=== PATIENT | male | born 1960 | race Two or more races ===

== ENCOUNTER 2025-04-28 12:24 | Outpatient (AMB) | payer MEDICARE, SELFPAY ==
--- NOTE | 2025-04-28 12:58 | A.OFFVIS_ITS ---
Intake Visit Reasons: elevated PSA Intake Note: patient presents today for: new pt elevated PSA urology medications: tamsulosin blood thinners: none labs done: PSA 0.8, f-PSA 25 smoker: no Director Data Processing Required: No Accompanied by: Self / Same As Patient Allergies No Known Allergies Allergy (Verified 04/28/25 13:27) Medication List - Last Reconciled 04/28/25 by JANIE Nunez-ILEANA atorvastatin 40 mg PO DAILY lisinopril 20 mg PO DAILY HPI Comments Details: Kaushik is a pleasant 64-year-old male patient. He has a past medical history of hyperlipidemia and hypertension. He presents to the office today for an elevated PSA. In discussion with the patient today reports having followed up with his PCP and having had blood work at which time recommendations were made for urology referral for further assessment evaluation. In review of patient's chart it appears PSA 02/20 0.8% free PSA 25%. We did discuss difference in PSA verses% free PSA. He denies any family history of prostate cancer. BONG was offered however deferred. He does report noting episodes of urinary frequency and nocturia however describes these episodes as somewhat infrequent and feels they are manageable independently. He otherwise denies incontinence, hematuria, dysuria, foul smelling urine, changes to urinary stream, flank pain, fever, and or chills. He is happy with his current voiding parameters. He also reports noting at times be having urinary hesitancy. In office urinalysis results reviewed with the patient today. We discussed potential causes of elevated% free as well as further treatment options and risks and benefits of these treatment options. All questions were answered. He otherwise offers no other issues or concerns at this time. Review of Systems Const All systems reviewed & are unremarkable except as noted in HPI and below Physical Exam Const General: cooperative, healthy appearing, comfortable, no acute distress, well developed, alert and awake Orientation/consciousness: patient oriented x3 Limitations: no limitations HEENT Head: Yes normal to inspection, Yes normocephalic and Yes atraumatic Ears: hearing grossly normal bilaterally Eyes General: appearance normal, both eyes and all related structures Neck Neck: Yes normal visual inspection and Yes trachea midline Chest Chest palpation & inspection: normal inspection of the chest Resp Effort & Inspection: normal respiratory effort and able to speak in complete sentences Cardio Rate: regular rate GI Inspection: Yes normal to inspection General: Yes no CVA tenderness Back/Spine/Pelvis Back: no CVA tenderness Skin General skin exam: no rashes or lesions noted Neuro General: patient oriented x3 Extrem General: Yes normal to inspection Psych Appearance: grossly normal and well kempt Mental Status: mental status grossly normal Speech and movement: Normal speech and movement present and Clear speech present Affect: normal affect Attitude: cooperative Thought process: Normal thought process present Thought content: Normal thought content present Insight: Fair insight present (Psych) Judgement: Fair judgement present (Psych) Results AMB Urinalysis, Automated UA Leukoctes 0 Ana/uL Last Edit by KONG Abraham on 04/28/25 13:09 UA Nitrite Last Edit by KONG Abraham on 04/28/25 13:09 UA Urobilinogen 0.2 mg/dL Last Edit by KONG Abraham on 04/28/25 13:0 9 UA Protein 15 mg/dL Last Edit by KONG Abraham on 04/28/25 13:09 UA pH 6.0 Last Edit by KONG Abraham on 04/28/25 13:09 UA Blood 0 Francesco/uL Last Edit by KONG Abraham on 04/28/25 13:09 UA Specific Vidor 1.020 Last Edit by KONG Abraham on 04/28/25 13: 09 UA Ketone Last Edit by KONG Abraham on 04/28/25 13:09 UA Bilirubin 0 mg/dL Last Edit by KONG Abraham on 04/28/25 13:09 UA Glucose 0 mg/dL Last Edit by KONG Abraham on 04/28/25 13:09 Results Reviewed Results Reviewed: Laboratory Last Values Urine pH (Auto) 6.0 04/28/25 13:09 Specific Vidor (Auto) 1.020 04/28/25 13:09 Urine Protein (Auto) 15 mg/dL 04/28/25 13:09 Glucose (UA)(Auto) 0 mg/dL 04/28/25 13:09 Urine Blood (Auto) 0 Francesco/uL 04/28/25 13:09 Urine Bilirubin (Auto) 0 mg/dL 04/28/25 13:09 Urine Urobilinogen (Auto) 0.2 mg/dL 04/28/25 13:09 Leukocyte Esterase (Auto) 0 Ana/uL 04/28/25 13:09 Assessment & Plan Assessment & Plan (1) History of elevated PSA: Code(s): Z87.898 - Personal history of other specified conditions Category: Medical (2) History of urinary hesitancy: Code(s): Z87.898 - Personal history of other specified conditions Category: Medical (3) Nocturia: Code(s): R35.1 - Nocturia Category: Medical (4) Urinary frequency: Code(s): R35.0 - Frequency of micturition Category: Medical Plan In office urinalysis results reviewed with the patient today; as noted above. Previous labs were reviewed with the patient today; as noted above. All questions were answered. He reports be happy with current voiding parameters. We discussed further workup in risks and benefits of these interventions. Will obtain retroperitoneal ultrasound for further assessment evaluation. Will obtain redraw of PSA. BONG offered however deferred. Follow-up in 1-3 months with imaging and labs; or sooner with any issues, concerns, and or questions. Orders: Orders US retroperitoneal comp Today R35.0 - Frequency of micturition, R35.1 - Nocturia, Z87.898 - Personal history of other specified conditions PSA,Total (Free>4and<10) Today R35.0 - Frequency of micturition, R35.1 - Nocturia, Z87.898 - Personal history of other specified conditions AMB Urinalysis Automated Today Z13.9 - Encounter for screening, unspecified Patient Instructions: The patient had an opportunity to ask questions regarding the treatment plan. All questions were answered. Physical exam, labs, and imaging were discussed and reviewed in detail. As well as risks, benefits, and discussion of treatment choices. No major barriers to understanding were identified. The patient expressed understanding and agreement with the above treatment plan. The patient was made aware they should contact our office by phone for worsening of their current condition, the appearance of new symptoms, or with any questions or concerns. Compliance is encouraged with any medications and follow up testing that is ordered. It is a privilege to be allowed the opportunity to participate in? your urological care.? Again, if you have any questions or concerns If you have any questions or concerns please do not hesitate to contact me. The office is [phone]. This note is constructed using voice recognition software. While every effort has been made to ensure accuracy supervisor partial denture department errors may have been included. Yours sincerely, JANIE Nunez-ILEANA Coding Level of Care Code New Pt Level 3 (09528) Diagnoses History of elevated PSA Z87.898 History of urinary hesitancy Z87.898 Nocturia R35.1 Urinary frequency R35.0
--- OUTSIDE RECORDS SUMMARY | 2025-04-28 13:37 | XMS_ITS | Clinical Summary ---
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 Name Role Phone Unavailable Primary Care Provider Unavailabl e Social History Tobacco Use Types Packs/Day Years Used Date Smoking Tobacco: Never Assessed Sex and Gender Information Value Date Recorded Sex Assigned at Not on file Legal Sex Male 9:04 AM EST Gender Identity Not on file Sexual Orientation Not on file Plan of Treatment Health Maintenance Due Date Last Done Comments DTaP,Tdap,and Td Vaccines (1 - Tdap) 1981 Pneumococcal Vaccine: 50+ Ye ars (1 of 1 - PCV) 2012 Zoster Vaccines (1 of 2) 2012 Depression Screening 07/30/2024 COVID-19 Vaccine (1 - 2023-2 5 season) 2025 Influenza Vaccine (#1) 2025 RSV Immunization Adult Patie nts (1 - 1-dose 75+ series) 2037 HIB Vaccines Aged Out No longer eligi ble based on patient's age to complete this topic HPV Vaccines Aged Out No longer eligi ble based on patient's age to complete this topic Hepatitis A Vaccines Aged Out No long er eligible based on patient's age to complete this topic Hepatitis B Vaccines Aged Out No long er eligible based on patient's age to complete this topic IPV Vaccines Aged Out No longer eligi ble based on patient's age to complete this topic MMR Vaccines Aged Out No longer eligi ble based on patient's age to complete this topic Meningococcal ACWY Vaccine Aged Out N o longer eligible based on patient's age to complete this topic Meningococcal B Vaccine Aged Out No l onger eligible based on patient's age to complete this topic RSV Immunization Patients Un colton 20 months Aged Out No longer eligible b ased on patient's age to complete this topic Varicella Vaccines Aged Out No longer eligible based on patient's age to complete this topic
--- OUTSIDE RECORDS SUMMARY | 2025-04-28 13:37 | XMS_ITS | Clinical Summary ---
Author Organization [facility] Address [address] [place] [address] Care Team Providers Care Hand Router Operator Name Role Phone Leatha Osman [facility] Primary Care Provider [phone] Source Comments PLEASE NOTE, if this patient is a minor, it may be UNLAWFUL to discuss sensitive information that is contained in these records (such as FAMILY PLANNING, MENTAL HEALTH or SUBSTANCE ABUSE) with the minor patient's parent or other person without the patient's specific authorization.[facility] Allergies No known active allergies Medications DULoxetine (CYMBALTA) [address] capsuleIndications :Anxiety and depression PRESCRIBED BY BOY CORREA CONSTANC E 0 11/29/19 22 Active ARIPiprazole (ABILIFY) 5 mg tabletIndications: Anxiety and depression [facility] ERIC BALES 11/29/19 22 Active ibuprofen 800 mg tabletIndications: Lymphadenopathy of right cervical region TAKE 1 TABLET BY MOUTH THREE TIMES A DAY NEEDED FOR PAIN 90 Tablet 1 03/06/20 22 Active meclizine (ANTIVERT) 25 mg tabletIndications: Vertigo TAKE 1 TABLET BY MOUTH 3 TIMES A DAY FOR 21 DAYS NEEDED FOR DIZZINESS 90 Tablet 12/02/19 23 Active ketoconazole (NIZORAL) 2 % shampooIndications :Seborrheic dermatitis APPLY TOPICALLY ONCE DAILY NEEDED FOR ITCHING 120 mL 4 09/29/19 25 Active lisinopriL 20 mg tabletIndications: Other secondary hypertension TAKE 1 TABLET BY MOUTH EVERY DAY 90 Tablet 1 11/07/19 25 Active tamsulosin (FLOMAX) 0.4 mg 24 hr capsuleIndications :Urinary dysfunction TAKE 1 CAPSULE BY MOUTH EVERY DAY IN THE EVENING 90 Capsule 1 11/07/19 25 Active atorvastatin (LIPITOR) 40 mg tabletIndications: Mixed hyperlipidemia TAKE 1 TABLET BY MOUTH ONCE DAILY FOR HIGH CHOLESTEROL AND HIGH TRIGLYCERIDES 90 Tablet 1 11/21/19 25 Active Active Problems Problem Noted Date Diagnosed Date Mixed hyperlipidemia 11/20/2023 Food insecurity 05/14/2023 Housing instability 05/14/2023 History of sexual dysfunction in male 10/25/2020 Localized osteoarthritis of lumbar spine 020 Overview (03/10/2020): Lumbar Spine 2 or 3 Views 03/08/2020 [facility] FINDINGS: There are 4 nonrib-bearing lumbar type vertebral bodies, which will be referred to as L1-L4. Vertebral body height, curvature, and alignment are normal. There is no significant disc space narrowing. Small multilevel anterior osteophytes are seen. Spinous processes and transverse processes are intact. SI joints are grossly unremarkable. There is no soft tissue abnormality. IMPRESSION: No acute abnormality. Hearing loss of left ear 03/04/2019 Tubular adenoma 03/04/2019 History of tobacco use 06/15/2018 Overview (05/15/2023): Stopped since 2004 Smoked 1.5 ppd for 30 years LDCT: pending HTN (hypertension) 05/30/2013 Major depressive disorder with current active ep isode 05/30/2013 Overview (05/14/2023): Was seeing Sunny Encounters Date Type Department Care Team Description 02/22/2025 Results Follow-Up [address] [address] Leatha Osman FNP 02/13/2025 10:00 AM EDT Office Visit [address] [address] Leatha Osman FNP from Last 3 Months Immunizations Immunization Administration Dates Next Due HEP A-HEP B (TWINRIX) 10/28/2020 Hep B,adult,adjuvanted (HEPLISAV) 02/13/2025 PNEUMOCOCCAL CONJUGATE PCV 20 (Prevnar 20) 02/13 TDAP 10/22/2020,02/07/2016,11/20/2011 ZOSTER VACCINE, RECOMBINANT (SHINGRIX) ,02/21/2023 Family History Medical History Relation Name Comments Diabetes Brother hiv+ Diabetes Mother Relation Name Status Comments Brother Father Alive Mother Social History Tobacco Use Types Packs/Day Years Used Date Smoking Tobacco: Former Cigarettes 1.5 31 1 977 - 2007 Smokeless Tobacco: Never Alcohol Use Standard Drinks/Week Comments No 0 (1 standard drink = 0.6 oz pur e alcohol) Social Connections Answer Date Recorded Connectedness 0 05/14/2023 Financial Resource Strain Answer Date R ecorded Financial Resource Strain 0 2022 Stress Answer Date Recorded Stress 0 05/14/2023 Physical Activity Answer Date Recorded Physical Activity 0 04/30/2020 Food Insecurity Answer Date Recorded Food 0 05/14/2023 Transportation Needs Answer Date Record ed Transportation 0 05/14/2023 Housing Stability Answer Date Recorded Housing 0 05/14/2023 Safety and Environment Answer Date Balbir rded Safety 0 05/14/2023 Utilities Answer Date Recorded Utilities 0 05/14/2023 Employment Answer Date Recorded Stress 0 04/30/2020 Sex and Gender Information Value Date Recorded Sex Assigned at Male 06/15/2018 6:50 PM PST Legal Sex Male 10:46 AM PDT Gender Identity Male 06/15/2018 6:50 PM PST Sexual Orientation Straight 06/15/2018 6: 50 PM PST Last Filed Vital Signs Vital Sign Reading Time Taken Comments Blood Pressure 150/90 02/13/2025 10:08 AM EDT Pulse 56 02/13/2025 10:08 AM EDT Temperature 36.7 C (98 F) 02/13/2025 10:08 AM EDT Respiratory Rate 16 02/13/2025 10:08 AM EDT Oxygen Saturation 98% 02/13/2025 10:08 AM EDT Inhaled Oxygen Concentration - - Weight 75.3 kg (166 lb 1.6 oz) 02/13/2025 10:08 AM EDT Height 172.7 cm (5' 8 ) 02/13/2025 10:08 AM EDT Body Mass Index 25.26 02/13/2025 10:08 AM EDT Plan of Treatment Health Maintenance Due Date Last Done Comments Medicare Annual Wellness Visit 1980 CT Colonography 2007 Fecal DNA 2007 Flexible Sigmoidoscopy 2007 FIT/gFOBT 07/22/2015 07/22/2014 (Declined) Colonoscopy 08/14/2023 08/14/2018 Colorectal Cancer Screening 08/14/2023 [id number] ( season) 2025 Imm-Influenza (#1) 2025 07/22/2014 (D eclined), 05/30/2013 (Declined) Imm-Hepatitis B (3 of 3 - 19 + 3-dose series) 04/10/2025 02/13/2025, 10/28/2020 Depression Monitoring 05/16/2025 02/13/2025 , 05/14/2023, 12/01/2022, Additional history exists Anxiety Screening 02/13/2026 02/13/2025 Diabetes Screening 02/13/2026 02/13/2025, 0 02/13/2025, 11/19/2023, Additional history exists Lipid Screening 02/13/2026 02/13/2025, 10/29, 05/14/2023, Additional history exists Tobacco Screening 02/13/2026 02/13/2025 Imm-DTaP/Tdap/Td (4 - Td or Tdap) 10/22/2030 10/22/2020, 02/07/2016, 11/20/2011 Hepatitis C Screening Completed 10/26/2020 Imm-Zoster, Recombinant Completed 05/14/2023, 02/21 Alcohol and Drug Screen Completed 02/14/20, 11/19/2023, 12/01/2022, Additional history exists HIV Screening Completed 02/13/2025, 10/29, 10/26/2020, Additional history exists Imm-Pneumococcal 50+ Completed 02/13/2025 Procedures Procedure Name Priority Date/Time Associated Diagnosis Comments RFLX - REFLEXIVE URINE CULTURE Routine 02/13/2025 10:58 AM EDT URINALYSIS, COMPLETE W/REFLEX TO CULTURE Routine 02/13/2025 10:58 AM EDT Routine general medical examination at a health care facility HIV 1/2 AG & AB W/RFLX (4TH GEN) Routine 02/13/2025 10:58 AM EDT Routine general medical examination at a health care facility PROSTATE SPECIFIC ANTIGEN, FREE AND TOTAL Routine 02/13/2025 10:58 AM EDT Routine general medical examination at a [facility] care facility BLOOD COUNT COMPLETE AUTO&AUTO DIFRNTL WBC Routine 02/13/2025 10:58 AM EDT Routine general medical examination at a [facility] care facility COMPREHENSIVE METABOLIC PANEL Routine 02/13/2025 10:58 AM EDT Routine general medical examination at a [facility] facility TSH W/RFLX FREE T4 Routine 02/13/2025 10 :58 AM EDT Routine general medical examination at formerly [facility] facility HEMOGLOBIN GLYCOSYLATED A1C Routine 02/13/2025 10:58 AM EDT Routine general medical examination at a [facility] facility LIPID PANEL Routine 02/13/2025 10:58 AM EDT Routine general medical examination at formerly [facility] facility ACUTE HEPATITIS PANEL W/RFLX Routine 10/26/2020 9:57 AM EDT COLONOSCOPY Routine 08/14/2018 from Last 3 Months or Most Recently Relevant to Health Maintenance Results * HIV 1/2 AG & AB W/RFLX (4TH GEN) Routine (02/13/2025 10:58 AM EDT) HIV Screen Final See Note [facility] Comment: HIV Negative HIV-1 antigen and HIV-1/HIV-2 antibodies were not detected. There is no laboratory evidence of HIV infection. HIV AG/AB, 4TH GEN NON-REACT RAYA NON-REACT RAYA [facility] Blood Blood / Unknown 02/13/2025 1 0:58 AM EDT 02/13/2025 10:59 AM EDT Narrative [facility] - 02/18/2025 5:22 AM EDT FASTING:NO Leatha Osman CHANGE COORDINATOR LAB - BLOOD DRAW Final Resul t Performing Organization Address City/[facility]/ZIP Co de Phone Number [facility] [address] [address], [facility] [address] [address] * TSH W/RFLX FREE T4 Routine (02/13/2025 10:58 AM EDT) TSH W/REFLEX TO FT4 1.46 0.40 - 4.50 mIU/L [facility] Blood Blood / Unknown 02/13/2025 1 0:58 AM EDT 02/13/2025 10:59 AM EDT Narrative [facility] - 02/18/2025 5:22 AM EDT FASTING:NO Leatha Osman CHANGE COORDINATOR LAB - BLOOD DRAW Edited Resu lt - Final Performing Organization Address [facility]/RUST de Phone Number [facility] [address] [address], [facility] [address] [address] * URINALYSIS, COMPLETE W/REFLEX TO CULTURE Urine Routine (02/13/2025 10:58 AM EDT) COLOR YELLOW YELLOW [facility] APPEARANCE CLEAR CLEAR [facility] SPECIFIC GRAVITY 1.028 1.001 - 1.035 [facility] URINE PH 5.5 5.0 - 8.0 [facility] GLUCOSE NEGATIVE NEGATIVE [facility] BILIRUBIN NEGATIVE NEGATIVE [facility] KETONES NEGATIVE NEGATIVE [facility] OCCULT BLOOD NEGATIVE NEGATIVE [facility] URINE PROTEIN NEGATIVE NEGATIVE [facility] NITRITE NEGATIVE NEGATIVE [facility] LEUKOCYTE ESTERASE NEGATIVE NEGATIVE [facility] URINE LEUKOCYTES NONE SEEN < OR = 5 [facility] RBC 0-2 0 - 2 /HPF [facility] SQUAMOUS EPITHELIAL CELLS NONE SEEN < OR = 5 [facility] BACTERIA NONE SEEN NONE SEEN [facility] HYALINE CAST NONE SEEN NONE SEEN [facility] SEE NOTE See Below [facility] Comment: This urine was analyzed for the presence of WBC, RBC, bacteria, casts, and other formed elements. Only those elements seen were reported. Urine Urine specimen / Unknown 02/13/2025 10:58 AM EDT 02/13/2025 10:59 AM EDT Narrative [facility] - 02/18/2025 5:22 AM EDT FASTING:NO Leatha DavenportDawson [facility] URINE AMBULATORY Edited Result - Final Performing Organization Address [facility]/ZIP Co de Phone Number [facility] [address] [address], [facility] [address] [address] * RFLX - REFLEXIVE URINE CULTURE Routine (02/13/2025 10:58 AM EDT) REFLEXIVE URINE CULTURE See Below [employer] [facility] Comment:NO CULTURE INDICATED 02/13/2025 10:5 8 AM EDT 02/13/2025 10:59 AM EDT Narrative [facility] - 02/18/2025 5:22 AM EDT FASTING:NO Leathakam Osman [facility] - MICROBIOLOGY AMBULATOR Y Edited Result - Final Performing Organization Address [facility] Co de Phone Number [facility] [address] [address], [facility] [address] [address] * (ABNORMAL) PROSTATE SPECIFIC ANTIGEN, FREE AND TOTAL Routine (02/13/2025 10:58 AM EDT) TOTAL PSA 0.8 < OR = 4.0 ng/mL [facility] FREE PSA 0.2 ng/mL [facility] % FREE PSA 25(L) >25 % (calc) [facility] Comment: PSA(ng/mL) Free PSA(%) Estimated(x) Probability of Cancer(as%) 0-2.5 (*) Approx. 1 2.6-4.0(1) 0-27(2) 24(3) 4.1-10(4) 0-10 56 11-15 28 16-20 20 21-25 16 >or =26 8 >10(+) N/A >50 References:(1)Coleen et al.:Urology 60: 469-474 (2002) (2)Coleen et al.:J.Urol 168: 922-925 (2001) Free PSA(%) Sensitivity(%) Specificity(%) < or = 25 85 19 < or = 30 93 9 (3)Palomaona et al.:KATHERINE 277: [phone] (1996) (4)Catalona et al.:KATHERINE 279: 5231-0905 (1997) (x)These estimates vary with age, ethnicity, family history and BONG results. (*)The diagnostic usefulness of % Free PSA has not been established in patients with total PSA below 2.6 ng/mL (+)In men with PSA above 10 ng/mL, prostate cancer risk is determined by total PSA alone. The Total PSA value from this assay system is standardized against the equimolar PSA standard. The test result will be approximately 20% higher when compared to the WHO-standardized Total PSA (Siemens assay). Comparison of serial PSA results should be interpreted with this fact in mind. PSA was performed using the Oksana Erin Immunoassay method. Values obtained from different assay methods cannot be used interchangeably. PSA levels, regardless of value, should not be interpreted as absolute evidence of the presence or absence of disease. Blood Blood / Unknown 02/13/2025 1 0:58 AM EDT 02/13/2025 10:59 AM EDT Narrative [facility] - 02/18/2025 5:22 AM EDT FASTING:NO Leatha Osman [facility] - BLOOD DRAW Final Resul t [facility] [address] [place] [address], [facility] [address] [place] [phone] * (ABNORMAL) BLOOD COUNT COMPLETE AUTO&AUTO DIFRNTL WBC Routine (02/13/2025 10:58 AM EDT) WHITE BLOOD CELL COUNT 7.6 3.8 - 10.8 Thousand/ uL [facility] RED BLOOD CELL COUNT 4.03(L) 4.20 - 5.80 Million/u L [facility] HEMOGLOBIN 13.0(L) 13.2 - 17.1 g/dL [facility] HEMATOCRIT 39.1 38.5 - 50.0 % [facility] MCV 97.0 80.0 - 100.0 fL [facility] MCH 32.3 27.0 - 33.0 pg [facility] MCHC 33.2 32.0 - 36.0 g/dL [facility] Comment: For adults, a slight decrease in the calculated MCHC value (in the range of 30 to 32 g/dL) is most likely not clinically significant; however, it should be interpreted with caution in correlation with other red cell parameters and the patient's clinical condition. RDW 12.2 11.0 - 15.0 % [facility] PLATELET COUNT 212 140 - 400 Thousand/ uL [facility] MPV 11.1 7.5 - 12.5 fL [facility] ABSOLUTE NEUTROPHILS 5,548 1,500 - 7,800 cells/uL [facility] ABSOLUTE LYMPHOCYTES 1,490 850 - 3,900 cells/uL [facility] ABSOLUTE MONOCYTES 479 200 - 950 cells/uL [facility] ABSOLUTE EOSINOPHILS 30 15 - 500 cells/uL [facility] ABSOLUTE BASOPHILS 53 0 - 200 cells/uL [facility] NEUTROPHILS PCT 73 % [facility] LYMPHOCYTES 19.6 % [facility] MONOCYTES 6.3 % [facility] EOSINOPHILS 0.4 % [facility] BASOPHILS 0.7 % [facility] Blood Blood / Unknown 02/13/2025 1 0:58 AM EDT 02/13/2025 10:59 AM EDT Narrative [facility] - 02/18/2025 5:22 AM EDT FASTING:NO Leatha Osman CHANGE COORDINATOR LAB - BLOOD DRAW Edited Resu lt - Final [facility] [address] [address], [facility] [address] [place] [address] * HEMOGLOBIN GLYCOSYLATED A1C Routine (02/13/2025 10:58 AM EDT) HEMOGLOBIN A1C 5.5 <5.7 % [facility] Comment: For the purpose of screening for the presence of diabetes: <5.7% Consistent with the absence of diabetes 5.7-6.4% Consistent with increased risk for diabetes (prediabetes) > or =6.5% Consistent with diabetes This assay result is consistent with a decreased risk of diabetes. Currently, no consensus exists regarding use of hemoglobin A1c for diagnosis of diabetes in children. According to [place] Diabetes Association (ADA) guidelines, hemoglobin A1c <7.0% represents optimal control in non- diabetic patients. Different metrics may apply to specific patient populations. Standards of Medical Care in Diabetes(ADA). Blood Blood / Unknown 02/13/2025 1 0:58 AM EDT 02/13/2025 10:59 AM EDT Narrative [facility] - 02/18/2025 5:22 AM EDT FASTING:NO Leatha Osman CHANGE COORDINATOR LAB - BLOOD DRAW Edited Resu lt - Final fromAtoB [facility] [address] [address], [facility] [address] [address] * LIPID PANEL Routine (02/13/2025 10:58 AM EDT) [facility] CHOLESTEROL, TOTAL 165 <200 mg/dL [facility] HDL CHOLESTEROL 56 > OR = 40 mg/dL [facility] TRIGLYCERIDES 104 <150 mg/dL [facility] LDL-CHOLESTEROL 89 99 mg/dL (calc) [facility] Comment: Reference range: <100 Desirable range <100 mg/dL for primary prevention; <70 mg/dL for patients with CHD or diabetic patients with > or = 2 CHD risk factors. LDL-C is now calculated using the Azam calculation, which is a validated novel method providing better accuracy than the Friedewald equation in the estimation of LDL-C. Carlitos ARANDA et al. KATHERINE. 2013;310(19): 3279-2445 (http://education.Proposify.Cellular Bioengineering/faq/YCG832) CHOL/HDLC RATIO 2.9 <5.0 (calc) [facility] NON-HDL CHOLESTEROL 109 <130 mg/dL (calc) [facility] Comment: For patients with diabetes plus 1 major ASCVD risk factor, treating to a non-HDL-C goal of <100 mg/dL (LDL-C of <70 mg/dL) is considered a therapeutic option. Blood Blood / Unknown 02/13/2025 1 0:58 AM EDT 02/13/2025 10:59 AM EDT Narrative [facility] - 02/18/2025 5:22 AM EDT FASTING:NO Leatha Osman CHANGE COORDINATOR LAB - BLOOD DRAW Final Resul t [facility] [address] [address], [facility] [address] [address] * COMPREHENSIVE METABOLIC PANEL Routine (02/13/2025 10:58 AM EDT) Pathologist [facility] [place] GLUCOSE 87 65 - 139 mg/dL [facility] Comment: Non-fasting reference interval UREA NITROGEN (BUN) 21 7 - 25 mg/dL [facility] CREATININE (blood) 1.03 0.70 - 1.35 mg/dL [facility] EGFR 82 > OR = 60 mL/min/1. 73m2 [facility] BUN/CREATININE RATIO SEE NOTE: [facility] Comment: Not Reported: BUN and Creatinine are within reference range. SODIUM 140 135 - 146 mmol/L [facility] POTASSIUM 4.9 3.5 - 5.3 mmol/L [facility] CHLORIDE 105 98 - 110 mmol/L [facility] CARBON DIOXIDE 27 20 - 32 mmol/L [facility] CALCIUM 9.5 8.6 - 10.3 mg/dL [facility] PROTEIN, TOTAL 6.6 6.1 - 8.1 g/dL [facility] ALBUMIN 4.4 3.6 - 5.1 g/dL [facility] GLOBULIN 2.2 1.9 - 3.7 g/dL (calc) [facility] ALBUMIN/GLOBULI N RATIO 2.0 1.0 - 2.5 (calc) [facility] BILIRUBIN, TOTAL 0.4 0.2 - 1.2 mg/dL [facility] ALKALINE PHOSPHATASE 59 35 - 144 U/L [facility] AST 18 10 - 35 U/L [facility] ALT 18 9 - 46 U/L [facility] Blood Blood / Unknown 02/13/2025 1 0:58 AM EDT 02/13/2025 10:59 AM EDT Narrative [facility] - 02/18/2025 5:22 AM EDT FASTING:NO Leatha Osman CHANGE COORDINATOR LAB - BLOOD DRAW Edited Resu lt - Final [facility] [address] [address], [facility] [address] [address] * COLONOSCOPY (08/14/2018) 08/14/2018 Impressions [facility] - 08/16/2018 9:26 AM EST Diverticulosis of the sigmoid colon. Polyps in the ascending colon.(Polypectomy). External Hemorrhoids us Provider [place] PROCEDURES Final Result Performing Organization Address [facility]/ZIP Co de Phone Number [facility] [address] [place] [address], from Last 3 Months or Most Recently Relevant to Health Maintenance Insurance [employer] [place] Care Teams Hand Router Operator Relationship Specialty Start Date End Date Leatha Osman FNP [facility] [place] [address] PCP - General Family Medicine, RECREATION COUNSELOR 01/27/25
== END 2025-04-28 13:23 | disposition home or self-care (01) ==
LOC: HO.HUSH 12:25
PROVIDERS: Visit Provider Nurse Practitioner Family
DX: Z87.898 Personal history of other specified conditions (principal); R35.1 Nocturia; R35.0 Frequency of micturition; Z13.9 Encounter for screening, unspecified
CPT/HCPCS: 99203

== ENCOUNTER → 2025-04-28 12:24 | Outpatient (BNVA) | payer MEDICARE, SELFPAY | PROVIDERS: Visit Provider Nurse Practitioner Family | DX: R97.20 Elevated prostate specific antigen [PSA] (principal); R35.1 Nocturia; R35.0 Frequency of micturition; Z87.898 Personal history of other specified conditions | CPT/HCPCS: 81003; 99202 ==

== ENCOUNTER 2025-06-18 14:20 | Outpatient (REF) | payer MEDICARE, SELFPAY ==
--- NOTE | ~2025-06-18 | US_ITS ---
EXAMINATION: US RETROPERITONEAL COMPLETE (RENAL) CLINICAL INFORMATION: Frequency, elevated PSA. COMPARISON: None available. TECHNIQUE: Real-time imaging of the kidneys and bladder. FINDINGS: RIGHT KIDNEY: 8.9 x 8.0 x 7.0 cm (SAG x AP x TRV). The kidney is normal in size, contour, and echogenicity. Renal cortical thickness is normal. No calculi or focal parenchymal lesions. No hydronephrosis. LEFT KIDNEY: 10.4 x 5.1 x 4.3 cm (SAG x AP x TRV). The kidney is normal in size, contour, and echogenicity. Renal cortical thickness is normal. No calculi or focal parenchymal lesions. No hydronephrosis. There is mild pelvic fullness present. There is a simple upper pole cyst measuring 1.2 cm. BLADDER: Well distended. Wall appears trabeculated. Bilateral ureteral jets are Demonstrated. Prevoid bladder volume is 180 mL. Postvoid bladder volume is estimated at 106 mL. (59% post void residual). Prostate volume estimated at 30.4 mL. US/US retroperitoneal comp IMPRESSION: 1. Significant postvoid residual of the urinary bladder at 106 mL estimated. 2. Trabeculated urinary bladder wall suggesting chronic outlet obstruction versus neurogenic bladder. 3. Mild fullness of the left renal pelvis without gross hydronephrosis. 4. Prostate enlargement with estimated volume of 30.4 mL. Electronically signed by: Esteban Metz MD 06/18/2025 04:03 PM [facility]
--- OUTSIDE RECORDS SUMMARY | 2025-06-18 19:45 | XMS_ITS | Clinical Summary ---
Author Organization [email or web address] [facility] ity Address [address] [place] [address] Care Team Providers Care Bobcat Driver/Labor Name Role Phone Unavailable Primary Care Provider [...] Depression Screening 07/30/2024 COVID-19 Vaccine (1 - 2024-2 6 season) 2025 Influenza Vaccine (#1) 2025 RSV [...]
== END 2025-06-18 14:21 | disposition home or self-care (01) ==
LOC: HO.US 14:20
PROVIDERS: Visit Provider Nurse Practitioner Family
DX: Z87.898 Personal history of other specified conditions (principal); R35.0 Frequency of micturition; R35.1 Nocturia
CPT/HCPCS: 76770

== ENCOUNTER → 2025-06-18 14:22 | Outpatient (BNV) | payer MEDICARE, SELFPAY | PROVIDERS: Visit Provider Radiology Diagnostic Radiology | DX: N40.0 Benign prostatic hyperplasia without lower urinary tract symptoms (principal) | CPT/HCPCS: 76770 ==

== ENCOUNTER 2025-07-03 07:46 | Outpatient (REF) | payer MEDICARE, SELFPAY ==
[2025-07-03 08:57] LABS: PSA,Total (Free>4and<10) 0.73 ng/mL (0.00-4.00)
== END 2025-07-03 07:47 | disposition home or self-care (01) ==
LOC: HO.LAB 07:46
PROVIDERS: PCP Dentist General Practice; Visit Provider Nurse Practitioner Family
DX: Z12.5 Encounter for screening for malignant neoplasm of prostate (principal); R35.1 Nocturia; R35.0 Frequency of micturition; Z87.898 Personal history of other specified conditions
CPT/HCPCS: 36415; 84153

== ENCOUNTER 2025-07-07 09:08 | Outpatient (AMB) | payer MEDICARE, SELFPAY ==
--- NOTE | 2025-07-07 09:10 | MHC.OFFVIS ---
Intake Visit Reasons: 3m/US/PSA/UA Intake Note: Patient is present for 3M/US/PSA/UA PSA:0.73 IMAGIN06/18/25 Urology Medication:NONE Antibiotic Allergy:NONE Blood Thinner:NONE Home Therapy Clinician Required: Yes Home Therapy Clinician Services: Home Therapy Clinician Present Home Therapy Clinician Name: Brisa Redmond Allergies No Known Allergies Allergy (Verified 07/07/25 09:36) Medication List - Last Reconciled 07/07/25 by JANIE Nunez-ILEANA atorvastatin 40 mg PO DAILY lisinopril 20 mg PO DAILY HPI Comments Details: Kaushik is a pleasant 64-year-old male patient. He has a past medical history of hyperlipidemia and hypertension. He presents to the office today for follow-up. Of note, during last office visit a retroperitoneal ultrasound and PSA were ordered for further assessment evaluation. These results were reviewed and communicated with the patient today. 06/23 bilateral kidneys are normal in size, contour and echogenicity. No hydronephrosis noted bilaterally. There is a simple upper pole cyst in the left kidney measuring 1.2 cm. The bladder is well distended however bladder wall appears trabeculated. Pre void bladder volume 180 mL. Postvoid bladder volume 105 mL. Prostate volume is estimated at approximately 30 mL. PSAs are as follows: PSA: 02/20 0.8 % free PSA 25%, 07/23 0.7 We discussed potential causes of % free PSA being elevated as well as enlarged prostate and bladder trabeculations noted on imaging. We discussed further treatment options and risks and benefits of these treatment options. He denies any known family history of prostate cancer. BONG was offered however deferred. He does report noting episodes of urinary frequency and nocturia however feels he is managing these symptoms well independently. He otherwise denies incontinence, hematuria, dysuria, foul smelling urine, changes to urinary stream, flank pain, fever, and or chills. He is happy with his current voiding parameters. He also reports noting at times be having urinary hesitancy. In office urinalysis results reviewed with the patient today. All questions were answered. He otherwise offers no other issues or concerns at this time. Review of Systems Const All systems reviewed & are unremarkable except as noted in HPI and below Physical Exam Const General: cooperative, healthy appearing, comfortable, no acute distress, well developed, alert and awake Orientation/consciousness: patient oriented x3 Limitations: language barrier HEENT Head: Yes normal to inspection, Yes normocephalic and Yes atraumatic Ears: hearing grossly normal bilaterally Eyes General: appearance normal, both eyes and all related structures Neck Neck: Yes normal visual inspection and Yes trachea midline Chest Chest palpation & inspection: normal inspection of the chest Resp Effort & Inspection: normal respiratory effort and able to speak in complete sentences Cardio Rate: regular rate GI Inspection: Yes normal to inspection General: Yes no CVA tenderness Back/Spine/Pelvis Back: no CVA tenderness Skin General skin exam: no rashes or lesions noted Neuro General: patient oriented x3 Extrem General: Yes normal to inspection Psych Appearance: grossly normal and well kempt Mental Status: mental status grossly normal Speech and movement: Normal speech and movement present and Clear speech present Affect: normal affect Attitude: cooperative Thought process: Normal thought process present Thought content: Normal thought content present Insight: Fair insight present (Psych) Judgement: Fair judgement present (Psych) Results AMB Urinalysis, Automated UA Leukoctes 0 Ana/uL Last Edit by KONG Garcia on 07/07/25 09:25 UA Nitrite Negative Last Edit by KONG Garcia on 07/07/25 09:25 UA Urobilinogen 0.2 mg/dL Last Edit by KONG Garcia on 07/07/25 09:25 UA Protein 0 mg/dL Last Edit by KONG Garcia on 07/07/25 09:25 UA pH 5.5 Last Edit by KONG Garcia on 07/07/25 09:25 UA Blood 0 Francesco/uL Last Edit by KONG Garcia on 07/07/25 09:25 UA Specific [place] 1.005 Last Edit by KONG Garcia on 07/07/25 09:25 UA Ketone Negative Last Edit by KONG Garcia on 07/07/25 09:25 UA Bilirubin 0 mg/dL Last Edit by KONG Garcia on 07/07/25 09:25 UA Glucose 0 mg/dL Last Edit by KONG Garcia on 07/07/25 09:25 Results Reviewed Results Reviewed: Laboratory Last Values Urine pH (Auto) 5.5 07/07/25 09:17 Specific [place] (Auto) 1.005 07/07/25 09:17 Urine Protein (Auto) 0 mg/dL 07/07/25 09:17 Glucose (UA)(Auto) 0 mg/dL 07/07/25 09:17 Urine Ketones (Auto) Negative 07/07/25 09:17 Urine Blood (Auto) 0 Francesco/uL 07/07/25 09:17 Urine Nitrite (Auto) Negative 07/07/25 09:17 Urine Bilirubin (Auto) 0 mg/dL 07/07/25 09:17 Urine Urobilinogen (Auto) 0.2 mg/dL 07/07/25 09:17 Leukocyte Esterase (Auto) 0 Ana/uL 07/07/25 09:17 Date of Service: 06/18/25 Procedure(s): US retroperitoneal comp RIGHT KIDNEY: 8.9 x 8.0 x 7.0 cm (SAG x AP x TRV). The kidney is normal in size, contour, and echogenicity. Renal cortical thickness is normal. No calculi or focal parenchymal lesions. No hydronephrosis. LEFT KIDNEY: 10.4 x 5.1 x 4.3 cm (SAG x AP x TRV). The kidney is normal in size, contour, and echogenicity. Renal cortical thickness is normal. No calculi or focal parenchymal lesions. No hydronephrosis. There is mild pelvic fullness present. There is a simple upper pole cyst measuring 1.2 cm. BLADDER: Well distended. Wall appears trabeculated. Bilateral ureteral jets are Demonstrated. Prevoid bladder volume is 180 mL. Postvoid bladder volume is estimated at 106 mL. (59% post void residual). Prostate volume estimated at 30.4 mL. IMPRESSION: 1. Significant postvoid residual of the urinary bladder at 106 mL estimated. 2. Trabeculated urinary bladder wall suggesting chronic outlet obstruction versus neurogenic bladder. 3. Mild fullness of the left renal pelvis without gross hydronephrosis. 4. Prostate enlargement with estimated volume of 30.4 mL. Assessment & Plan Assessment & Plan (1) History of urinary hesitancy: Code(s): Z87.898 - Personal history of other specified conditions Category: Medical (2) Nocturia: Code(s): R35.1 - Nocturia Category: Medical (3) Urinary frequency: Code(s): R35.0 - Frequency of micturition Category: Medical (4) Bladder trabeculation: Code(s): N32.89 - Other specified disorders of bladder Category: Medical (5) Enlarged prostate: Code(s): N40.0 - Benign prostatic hyperplasia without lower urinary tract symptoms Category: Medical Plan In office urinalysis results with the patient today; as noted above. Most recent retroperitoneal ultrasound results with the patient today; as noted above. Most recent PSA results with the patient today; as noted above. We discussed incomplete bladder emptying, bladder trabeculations, and enlarged prostate; we did discussed further treatment options and risks and benefits of these treatment options. All questions were answered. Start Flomax as discussed and prescribed. We discussed potential near future in office cystoscopy and or urodynamics for further assessment evaluation. We discussed attempting to double void to assist with bladder emptying as well as healthy bathroom behaviors. Follow-up in 3-6 months with [facility]; or sooner with any issues, concerns, and or questions. Orders: Orders AMB Urinalysis Automated Today Z13.9 - Encounter for screening, unspecified Medications: New tamsulosin 0.4 mg PO BEDTIME 90 caps 2RF 90 days Patient Instructions: The patient had an opportunity to ask questions regarding the treatment plan. All questions were answered. Physical exam, labs, and imaging were discussed and reviewed in detail. As well as risks, benefits, and discussion of treatment choices. No major barriers to understanding were identified. The patient expressed understanding and agreement with the above treatment plan. The patient was made aware they should contact our office by phone for worsening of their current condition, the appearance of new symptoms, or with any questions or concerns. Compliance is encouraged with any medications and follow up testing that is ordered. It is a privilege to be allowed the opportunity to participate in? your urological care.? Again, if you have any questions or concerns If you have any questions or concerns please do not hesitate to contact me. The office is [phone]. This note is constructed using voice recognition software. While every effort has been made to ensure accuracy crackling press operator errors may have been included. Yours sincerely, SANAZ Nunez Coding Level of Care Code Est Pt Level 4 (57120) Complex visit Add On G2211 Diagnoses History of urinary hesitancy Z87.898 Nocturia R35.1 Urinary frequency R35.0 Bladder trabeculation N32.89 Enlarged prostate N40.0
== END 2025-07-07 09:51 | disposition home or self-care (01) ==
LOC: HO.HUSH 09:08
PROVIDERS: PCP Dentist General Practice; Visit Provider Nurse Practitioner Family
DX: Z87.898 Personal history of other specified conditions (principal); R35.1 Nocturia; R35.0 Frequency of micturition; N32.89 Other specified disorders of bladder; N40.0 Benign prostatic hyperplasia without lower urinary tract symptoms; Z13.9 Encounter for screening, unspecified
CPT/HCPCS: 99214; G2211

== ENCOUNTER → 2025-07-07 09:08 | Outpatient (BNVA) | payer MEDICARE, SELFPAY | PROVIDERS: PCP Dentist General Practice; Visit Provider Nurse Practitioner Family | DX: N40.1 Benign prostatic hyperplasia with lower urinary tract symptoms (principal); N32.89 Other specified disorders of bladder; R35.1 Nocturia; R35.0 Frequency of micturition; Z87.898 Personal history of other specified conditions | CPT/HCPCS: 81003; 99212 ==